=== PATIENT | female | born 1955 | race Hispanic/Latino ===

== ENCOUNTER → 2020-08-18 | Outpatient (CLI) | payer OTHER | END | disposition home or self-care (01) | LOC: RAH 13:20 | PROVIDERS: ATTEND Internal Medicine Critical Care Medicine | DX: M34.9 Systemic sclerosis, unspecified (principal); R16.1 Splenomegaly, not elsewhere classified; Z90.49 Acquired absence of other specified parts of digestive tract | CPT/HCPCS: 71250 ==

== ENCOUNTER → 2020-09-11 | Outpatient (CLI) | payer OTHER ==
[~2020-09-11] VITALS: Ht 154.9 cm; Wt 60.8 kg
[~2020-09-11] MED LIST: ASCO500C6 PO; ERGO50CA PO; FERR-82 PO; FURO40TA5 PO; HYDR200T4 PO; LEVO112T7 PO; LOSA50TA64 PO; MILK175C5 PO; NIFE30TA98 PO; OMEP40CA13 PO; PRED5TAB44 PO; REGADENOSON 0.4 MG/5 ML PF SYG IVP SCH; ROSU20TA31 PO; SPIR50TA5 PO; URSO250T12 PO
== END | disposition home or self-care (01) ==
LOC: SHCH 09:06
PROVIDERS: ATTEND Internal Medicine Cardiovascular Disease
DX: R07.9 Chest pain, unspecified (principal); R06.00 Dyspnea, unspecified; R10.9 Unspecified abdominal pain; M54.5 Low back pain; R51.9 Headache, unspecified
CPT/HCPCS: 78452; 93017; 96374; A9500 ×2

== ENCOUNTER 2020-09-28 16:18 | Observation (INO) | payer OTHER ==
[~2020-09-28] VITALS: Ht 154.9 cm; Wt 61.3 kg
[~2020-09-28 16:18] MED LIST changes: +ASPI-1005 PO; -LOSA50TA64 PO; +METO25 PO; -NIFE30TA98 PO; -OMEP40CA13 PO; +OMEP40CA21 PO; -REGADENOSON 0.4 MG/5 ML PF SYG IVP SCH; +TICA90TA PO
[2020-09-28 16:31] VITALS: BP 163/57
[2020-09-28 17:09] LABS: CREATININE 0.9 mg/dL (0.5-1.5); POTASSIUM 4.5 mmol/L (3.5-5.1)
[2020-09-28 17:15] LABS: BASOPHILS % (AUTO) 0.5 % (0.0-5.0); EOSINOPHILS % (AUTO) 1.3 % (0.0-8.0); HEMATOCRIT 31.2 % (36-48); LYMPHOCYTES % (AUTO) 10.2 % (21.0-51.0); MEAN CORPUSCULAR HEMOGLOBIN 28.3 pg (27.0-33.0); MEAN CORPUSCULAR HGB CONC 30.4 g/dL (32.0-36.0); MEAN CORPUSCULAR VOLUME 92.9 fL (79-99); MONOCYTES % (AUTO) 12.5 % (3.0-13.0); NEUTROPHILS % (AUTO) 73.6 % (40.0-77.0); PLATELET COUNT (AUTO) 96 K/uL (130-400); RED BLOOD CELL COUNT(AUTO) 3.36 MIL/uL (4.00-5.50); RED CELL DISTRIBUTION WIDTH 14.6 % (11.0-15.5); WHITE BLOOD COUNT (AUTO) 6.2 K/uL (4.8-10.8)
[2020-09-28] MEDS ORDERED: ASPIRIN 325MG EC TAB PO ONE (17:15)
[2020-09-28 17:20] LABS: ALBUMIN 3.7 g/dL (3.5-5.0); BILIRUBIN,TOTAL 2.1 mg/dL (0.2-1.0); TOTAL PROTEIN, SERUM 7.1 g/dL (6.0-8.3); TROPONIN I 0.04 ng/mL (0.00-0.06)
[2020-09-28 17:46] LABS: B-TYPE NATRIURETIC PEPTIDE 232 pg/mL (0-100)
[2020-09-28] MEDS ORDERED: NITROGLYCERIN 1GM OINT 1 INCH/1GM TD SCH (18:15)
[2020-09-28] MEDS ORDERED: MORPHINE 4 MG SYG IV ONE (18:30)
[2020-09-28 19:53] LABS: INR 1.1 (0.85-1.15); PROTHROMBIN TIME 11.9 SEC (9.6-11.6)
[2020-09-28 19:54] LABS: PARTIAL THROMBOPLASTIN TIME 24.9 SEC (26.3-35.5)
[2020-09-28 20:44] VITALS: BP 131/42
[2020-09-28] MEDS ORDERED: ONDANSETRON 4MG INJ IV PRN (21:15)
[2020-09-28] MEDS ORDERED: ACETAMINOPHEN 325 MG TAB PO PRN ×2 (21:15)
[2020-09-28] MEDS ORDERED: MORPHINE 2 MG SYG IVP PRN (21:15)
[2020-09-28] MEDS: FAMOTIDINE 20MG VIAL IV SCH (21:55)
[2020-09-28] MEDS: NITROGLYCERIN 1GM OINT 1 INCH/1GM TD SCH (21:55)
[2020-09-29] VITALS (11 sets, daily range): BP systolic 117–144; BP diastolic 42–79
[2020-09-29 06:12] LABS: HEMATOCRIT 28.9 % (36-48); MEAN CORPUSCULAR HEMOGLOBIN 28.8 pg (27.0-33.0); MEAN CORPUSCULAR HGB CONC 30.8 g/dL (32.0-36.0); MEAN CORPUSCULAR VOLUME 93.5 fL (79-99); PLATELET COUNT (AUTO) 91 K/uL (130-400); RED BLOOD CELL COUNT(AUTO) 3.09 MIL/uL (4.00-5.50); RED CELL DISTRIBUTION WIDTH 14.7 % (11.0-15.5)
[2020-09-29] MEDS: NITROGLYCERIN 1GM OINT 1 INCH/1GM TD SCH (06:30)
[2020-09-29 06:35] LABS: ALANINE AMINOTRANSFERASE 26 U/L (12-78); ALBUMIN 3.1 g/dL (3.5-5.0); ASPARTATE AMINOTRANSFERASE 27 U/L (10-37); BILIRUBIN,TOTAL 1.5 mg/dL (0.2-1.0); CARBON DIOXIDE 27 mmol/L (21-32); CHLORIDE 108 mmol/L (101-111); CHOLESTEROL 91 mg/dL (<200); CREATINE KINASE, TOTAL 42 U/L (21-232); CREATININE 0.9 mg/dL (0.5-1.5); GLOMERULAR FILTR. RATE CALC 67 mL/min (>60); GLUCOSE,RANDOM 77 mg/dL (70-105); HDL CHOLESTEROL 61 mg/dL (35-85); LDL DIRECT 26 mg/dL (0-99); MYOGLOBIN 64 ng/mL (10-92); POTASSIUM 4.2 mmol/L (3.5-5.1); SODIUM SERUM 142 mmol/L (136-145); THYROID STIMULATING HORMONE 9.52 uIU/mL (0.36-3.74); TOTAL PROTEIN, SERUM 6.2 g/dL (6.0-8.3); TRIGLYCERIDES 93 mg/dL (30-200); TROPONIN I < 0.04 ng/mL (0.00-0.06); UREA NITROGEN, BLOOD 17 mg/dL (7-18)
[2020-09-29 07:10] LABS: LYMPHOCYTES % (MANUAL) 24 % (22-44); MAN.DIFF COMMENT-IMPRESSION MANUAL DIFFERENTIAL; MONOCYTES % (MANUAL) 10 % (2-9); PLATELET MORPHOLOGY COMMENT DECREASED; SEGMENTED NEUTROPHILS % 66 % (40-70)
[2020-09-29] MEDS ORDERED: ASPIRIN 81MG CHEW TAB PO SCH (09:00)
[2020-09-29] MEDS ORDERED: PRED5TAB PO (10:39)
[2020-09-29] MEDS ORDERED: NITR0.4T SL (10:39)
[2020-09-29] MEDS: TICAGRELOR 90 MG TABLET PO SCH ×2 (11:55→20:27)
[2020-09-29] MEDS: METOPROLOL TARTRATE 25 MG TAB PO SCH ×2 (11:55→20:27)
[2020-09-29] MEDS: FAMOTIDINE 20MG VIAL IV SCH (20:28)
[2020-09-29] MEDS ORDERED: NON-FORMULARY MEDICATION 1 EACH (Prednisone 5 MG) PO SCH (21:00)
[2020-09-29] MEDS ORDERED: SPIRONOLACTONE 25 MG TAB PO SCH (21:00)
[2020-09-29] MEDS ORDERED: PREDNISONE 5 MG TABLET PO SCH (21:00)
[2020-09-29] MEDS ORDERED: NON-FORMULARY MEDICATION 1 EACH (Spironolactone 50 MG) PO SCH (21:00)
[2020-09-29] MEDS ORDERED: URSODIOL 250 MG PO SCH (21:00)
[2020-09-30 04:09] VITALS: BP 144/68
[2020-09-30 05:58] LABS: BASOPHILS % (AUTO) 0.8 % (0.0-5.0); EOSINOPHILS % (AUTO) 0.8 % (0.0-8.0); HEMATOCRIT 32.4 % (36-48); LYMPHOCYTES % (AUTO) 7.9 % (21.0-51.0); MEAN CORPUSCULAR HEMOGLOBIN 28.3 pg (27.0-33.0); MEAN CORPUSCULAR HGB CONC 31.5 g/dL (32.0-36.0); MONOCYTES % (AUTO) 8.5 % (3.0-13.0); NEUTROPHILS % (AUTO) 80.1 % (40.0-77.0); PLATELET COUNT (AUTO) 91 K/uL (130-400); RED CELL DISTRIBUTION WIDTH 14.3 % (11.0-15.5); WHITE BLOOD COUNT (AUTO) 3.7 K/uL (4.8-10.8)
[2020-09-30 06:10] LABS: CREATININE 0.8 mg/dL (0.5-1.5)
[2020-09-30] MEDS ORDERED: LEVOTHYROXINE 112 MCG TABLET PO SCH ×2 (06:30→09:00)
[2020-09-30 07:47] VITALS: BP 152/67
[2020-09-30] MEDS: METOPROLOL TARTRATE 25 MG TAB PO SCH (08:46)
[2020-09-30] MEDS: TICAGRELOR 90 MG TABLET PO SCH (08:46)
[2020-09-30] MEDS ORDERED: PANTOPRAZOLE 40 MG TAB DR PO SCH (09:00)
[2020-09-30] MEDS ORDERED: NON-FORMULARY MEDICATION 1 EACH (Ferrous Sulfate (Iron) 325 MG) PO SCH (09:00)
[2020-09-30] MEDS ORDERED: HYDROXYCHLOROQUINE SULFATE 200 MG TAB PO SCH (09:00)
[2020-09-30] MEDS ORDERED: NON-FORMULARY MEDICATION 1 EACH (Omeprazole 40 MG) PO SCH (09:00)
[2020-09-30] MEDS ORDERED: NON-FORMULARY MEDICATION 1 EACH (Ascorbic Acid (Vitamin C) 500 MG) PO SCH (09:00)
[2020-09-30] MEDS ORDERED: MILK THISTLE SEED EXTRACT 175 MG PO SCH (09:00)
[2020-09-30] MEDS ORDERED: URSODIOL 250 MG PO SCH (09:00)
[2020-09-30] MEDS ORDERED: ASCORBIC ACID 500 MG TAB PO SCH (09:00)
[2020-09-30] MEDS ORDERED: FERROUS SULFATE 325 MG TABLET.DR PO SCH ×2 (09:00)
[2020-09-30] MEDS ORDERED: FUROSEMIDE 40 MG TABLET PO SCH (09:00)
[2020-09-30] MEDS ORDERED: IOHEXOL-350 50ML VIAL IV ONE (10:04)
[2020-09-30 11:30] VITALS: BP 160/54
[2020-09-30] MEDS ORDERED: PREDNISONE 10 MG TABLET PO SCH (14:45)
[2020-09-30 16:26] VITALS: BP 127/65
[2020-09-30] MEDS ORDERED: PRED10B PO (17:39)
[2020-09-30] MEDS ORDERED: LEVO125T95 PO (17:39)
[2020-09-30] MEDS ORDERED: LACTULOSE 20 GM/30 ML UDCUP PO SCH (21:00)
[2020-09-30] MEDS ORDERED: SPIRONOLACTONE 25 MG TAB PO SCH (21:00)
[2020-10-01] MEDS ORDERED: LEVOTHYROXINE 125 MCG TABLET PO SCH (06:30)
[2020-10-01] MEDS ORDERED: PREDNISONE 10 MG TABLET PO SCH (09:00)
[2020-10-04] MEDS ORDERED: ERGOCALCIFEROL (VITAMIN D2) 50,000 UNIT CAPSULE PO SCH (09:00)
== END 2020-09-30 18:55 | disposition home or self-care (01) ==
LOC: EDH 16:18 → INTOOBSV 21:45 → EDHIP 21:45 → 4DH 09-29 13:44
PROVIDERS: ADMIT Internal Medicine; ATTEND Internal Medicine
DX: R07.89 Other chest pain (principal); D64.9 Anemia, unspecified; R10.31 Right lower quadrant pain; I10 Essential (primary) hypertension; H92.01 Otalgia, right ear; K74.60 Unspecified cirrhosis of liver; E78.49 Other hyperlipidemia; I25.10 Atherosclerotic heart disease of native coronary artery without angina pectoris; I25.2 Old myocardial infarction; E03.9 Hypothyroidism, unspecified; M34.1 CR(E)ST syndrome; M34.9 Systemic sclerosis, unspecified; D69.6 Thrombocytopenia, unspecified; M35.00 Sjogren syndrome, unspecified; K76.6 Portal hypertension; K72.90 Hepatic failure, unspecified without coma; R79.89 Other specified abnormal findings of blood chemistry; I21.4 Non-ST elevation (NSTEMI) myocardial infarction; I85.10 Secondary esophageal varices without bleeding; M79.89 Other specified soft tissue disorders; Z95.5 Presence of coronary angioplasty implant and graft; Z90.49 Acquired absence of other specified parts of digestive tract; Z79.82 Long term (current) use of aspirin; Z79.899 Other long term (current) drug therapy
CPT/HCPCS: 36415 ×3; 70470; 71045; 72125; 76882; 80048; 80053 ×2; 80061; 82550 ×2; 83874 ×2; 83880; 84439; 84443; 84481; 84484 ×3; 85025 ×2; 85027; 85610; 85651; 85730; 93005 ×2; 93306; 93356; 96374; 96375; 96376; 99285; G0378 ×2; J2270; J3490 ×2; J7512 ×2; Q9967

== ENCOUNTER → 2020-12-17 | Outpatient (CLI) | payer OTHER ==
[~2020-12-17] MED LIST changes: -LEVO112T7 PO; +LEVO125T95 PO; +NITR0.4T SL; +PRED10B PO; -PRED5TAB44 PO
== END | disposition home or self-care (01) ==
LOC: RAH 09:15
PROVIDERS: ATTEND Internal Medicine Gastroenterology
DX: K44.9 Diaphragmatic hernia without obstruction or gangrene (principal); K74.3 Primary biliary cirrhosis; N28.1 Cyst of kidney, acquired; Z90.49 Acquired absence of other specified parts of digestive tract
CPT/HCPCS: 74240; 76700; 93975

== ENCOUNTER 2021-01-29 19:41 | Emergency (ER) | payer OTHER ==
[~2021-01-29] VITALS: Ht 154.9 cm; Wt 59.0 kg
[2021-01-29 19:45] VITALS: BP 151/55
[2021-01-29 20:18] LABS: APPEARANCE,URINE Clear (CLEAR); BILIRUBIN,URINE Negative (NEGATIVE); COLOR,URINE Yellow (YELLOW); GLUCOSE, URINE (UA) Negative (NEGATIVE); KETONES,URINE Negative (NEGATIVE); LEUKOCYTE ESTERASE ,URINE Small (NEGATIVE); NITRATE,URINE Negative (NEGATIVE); OCCULT BLOOD,URINE Negative (NEGATIVE); PROTEIN,URINE Negative (NEGATIVE)
[2021-01-29 20:28] LABS: BACTERIA,URINE Rare /HPF (None Seen); MUCUS,URINE None Seen LPF (None Seen); RBC,URINE 0-1 /HPF (0-1); SQUAMOUS EPITHELIAL CELL,UR Rare /HPF (0-2)
[2021-01-29] MEDS ORDERED: ONDANSETRON 4MG INJ IVP ONE (20:30)
[2021-01-29] MEDS ORDERED: MORPHINE 2 MG SYG IVP ONE (20:30)
[2021-01-29 21:16] LABS: BASOPHILS % (AUTO) 0.3 % (0.0-5.0); EOSINOPHILS % (AUTO) 1.2 % (0.0-8.0); LYMPHOCYTES % (AUTO) 14.8 % (21.0-51.0); MEAN CORPUSCULAR HEMOGLOBIN 28.3 pg (27.0-33.0); MEAN CORPUSCULAR HGB CONC 31.5 g/dL (32.0-36.0); MEAN CORPUSCULAR VOLUME 89.7 fL (79-99); MONOCYTES % (AUTO) 10.2 % (3.0-13.0); NEUTROPHILS % (AUTO) 72.9 % (40.0-77.0); PLATELET COUNT (AUTO) 82 K/uL (130-400); RED BLOOD CELL COUNT(AUTO) 3.68 MIL/uL (4.00-5.50); WHITE BLOOD COUNT (AUTO) 3.3 K/uL (4.8-10.8)
[2021-01-29 21:30] LABS: CREATININE 0.9 mg/dL (0.5-1.5); POTASSIUM 3.6 mmol/L (3.5-5.1)
[2021-01-29 21:34] LABS: ALBUMIN 3.9 g/dL (3.5-5.0); BILIRUBIN,TOTAL 1.1 mg/dL (0.2-1.0); CRP QUANTITATIVE 4.3 mg/L (0.00-9.0); TOTAL PROTEIN, SERUM 7.2 g/dL (6.0-8.3)
[2021-01-29] MEDS ORDERED: DICY20TA2 PO (21:42)
== END 2021-01-29 21:52 | disposition home or self-care (01) ==
LOC: EDH 19:41
DX: K57.30 Diverticulosis of large intestine without perforation or abscess without bleeding (principal); R10.32 Left lower quadrant pain; I10 Essential (primary) hypertension; Z79.52 Long term (current) use of systemic steroids; Z79.82 Long term (current) use of aspirin; Z79.899 Other long term (current) drug therapy
CPT/HCPCS: 36415; 71045; 74176; 80053; 81001; 83690; 84484; 85025; 86140

== ENCOUNTER 2021-02-09 06:17 | Day surgery (SDC) | payer OTHER ==
[~2021-02-09] VITALS: Ht 154.9 cm; Wt 59.9 kg
[~2021-02-09 06:17] MED LIST changes: +DICY20TA2 PO
[2021-02-09] MEDS ORDERED: 0.9%NACL 1000ML 1,000 ML IV ONE (06:25)
[2021-02-09 07:53] VITALS: BP 130/60
[2021-02-09] MEDS ORDERED: LOSA50TA64 PO (08:08)
[2021-02-09] MEDS ORDERED: NIFE-40 PO (08:08)
[2021-02-09] MEDS ORDERED: PROPOFOL 10 MG/ML 20ML VIAL IV ONE (09:13)
[2021-02-09 09:30] VITALS: BP 104/44
[2021-02-09 09:35] VITALS: BP 118/50
[2021-02-09 09:40] VITALS: BP 115/48
[2021-02-09 09:45] VITALS: BP 126/54
[2021-02-09 10:00] VITALS: BP 120/52
== END 2021-02-09 10:00 | disposition home or self-care (01) ==
LOC: DAH 06:17
PROVIDERS: ATTEND Internal Medicine Gastroenterology
DX: D50.9 Iron deficiency anemia, unspecified (principal); Z20.822 Contact with and (suspected) exposure to COVID-19; K44.9 Diaphragmatic hernia without obstruction or gangrene; K31.7 Polyp of stomach and duodenum; K74.3 Primary biliary cirrhosis; I85.10 Secondary esophageal varices without bleeding; K31.89 Other diseases of stomach and duodenum; R13.10 Dysphagia, unspecified; M34.9 Systemic sclerosis, unspecified; I25.10 Atherosclerotic heart disease of native coronary artery without angina pectoris; K21.9 Gastro-esophageal reflux disease without esophagitis; E03.9 Hypothyroidism, unspecified; I25.2 Old myocardial infarction; I86.8 Varicose veins of other specified sites; Z79.82 Long term (current) use of aspirin; Z79.01 Long term (current) use of anticoagulants; Z86.010 Personal history of colon polyps; Z90.49 Acquired absence of other specified parts of digestive tract; Z98.891 History of uterine scar from previous surgery; Z95.5 Presence of coronary angioplasty implant and graft; Z98.890 Other specified postprocedural states
CPT/HCPCS: 43239; 87635; 88305; 88313; 88342; 93005; A4215 ×2; A4221; A4222; A4223; A4606; A4620; A4663; C9803; J2704; J7030

== ENCOUNTER 2021-02-22 07:56 | Emergency (ER) | payer OTHER ==
[~2021-02-22] VITALS: Ht 154.9 cm; Wt 59.0 kg
[~2021-02-22 07:56] MED LIST changes: -DICY20TA2 PO; +LOSA50TA64 PO; +NIFE-40 PO; -NITR0.4T SL; -ROSU20TA31 PO; -TICA90TA PO
[2021-02-22 08:04] VITALS: BP 151/57
[2021-02-22 08:21] LABS: BASOPHILS % (AUTO) 0.4 % (0.0-5.0); EOSINOPHILS % (AUTO) 1.6 % (0.0-8.0); LYMPHOCYTES % (AUTO) 6.7 % (21.0-51.0); MEAN CORPUSCULAR HEMOGLOBIN 28.4 pg (27.0-33.0); MEAN CORPUSCULAR HGB CONC 30.9 g/dL (32.0-36.0); MEAN CORPUSCULAR VOLUME 91.9 fL (79-99); MONOCYTES % (AUTO) 7.9 % (3.0-13.0); NEUTROPHILS % (AUTO) 82.8 % (40.0-77.0); PLATELET COUNT (AUTO) 71 K/uL (130-400); RED BLOOD CELL COUNT(AUTO) 3.59 MIL/uL (4.00-5.50); RED CELL DISTRIBUTION WIDTH 15.5 % (11.0-15.5); WHITE BLOOD COUNT (AUTO) 5.1 K/uL (4.8-10.8)
[2021-02-22 08:48] LABS: ALBUMIN 2.8 g/dL (3.5-5.0); BILIRUBIN,TOTAL 1.9 mg/dL (0.2-1.0); CREATININE 0.8 mg/dL (0.5-1.5); POTASSIUM 3.6 mmol/L (3.5-5.1); TOTAL PROTEIN, SERUM 6.1 g/dL (6.0-8.3)
[2021-02-22] MEDS ORDERED: DICY10 PO (09:23)
[2021-02-22] MEDS ORDERED: LOPE2TAB26 PO (09:23)
[2021-02-22] MEDS ORDERED: LOPERAMIDE HCL 2 MG CAP PO ONE (09:30)
[2021-02-22] MEDS ORDERED: DICYCLOMINE HCL 20 MG TAB PO SCH (09:30)
== END 2021-02-22 09:26 | disposition home or self-care (01) ==
LOC: EDH 07:56
DX: K62.5 Hemorrhage of anus and rectum (principal); R19.7 Diarrhea, unspecified; R10.9 Unspecified abdominal pain; I25.10 Atherosclerotic heart disease of native coronary artery without angina pectoris; Z79.52 Long term (current) use of systemic steroids; Z79.82 Long term (current) use of aspirin; Z79.899 Other long term (current) drug therapy; Z87.19 Personal history of other diseases of the digestive system
CPT/HCPCS: 36415; 80053; 82270; 85025

== ENCOUNTER 2021-06-06 16:51 | Inpatient (IN) | payer OTHER ==
[~2021-06-06] VITALS: Ht 162.6 cm; Wt 58.5 kg
[2021-06-06 02:15] VITALS: BP 124/59
[~2021-06-06 16:51] MED LIST changes: +DICY10 PO; +LOPE2TAB26 PO
[2021-06-06 17:48] LABS: BASOPHILS % (AUTO) 0.9 % (0.0-5.0); EOSINOPHILS % (AUTO) 2.2 % (0.0-8.0); HEMATOCRIT 28.4 % (36-48); LYMPHOCYTES % (AUTO) 10.2 % (21.0-51.0); MEAN CORPUSCULAR HEMOGLOBIN 28.8 pg (27.0-33.0); MEAN CORPUSCULAR VOLUME 92.8 fL (79-99); MONOCYTES % (AUTO) 15.2 % (3.0-13.0); NEUTROPHILS % (AUTO) 70.9 % (40.0-77.0); PLATELET COUNT (AUTO) 84 K/uL (130-400); RED BLOOD CELL COUNT(AUTO) 3.06 MIL/uL (4.00-5.50); RED CELL DISTRIBUTION WIDTH 15.2 % (11.0-15.5); WHITE BLOOD COUNT (AUTO) 3.2 K/uL (4.8-10.8)
[2021-06-06 17:58] LABS: CREATININE 1.1 mg/dL (0.5-1.5); POTASSIUM 4.1 mmol/L (3.5-5.1)
[2021-06-06 18:03] LABS: ALBUMIN 3.1 g/dL (3.5-5.0); BILIRUBIN,TOTAL 1.1 mg/dL (0.2-1.0); TOTAL PROTEIN, SERUM 6.3 g/dL (6.0-8.3)
[2021-06-06 18:10] LABS: B-TYPE NATRIURETIC PEPTIDE 382 pg/mL (0-100)
[2021-06-06 19:49] LABS: THYROID STIMULATING HORMONE 4.24 uIU/mL (0.36-3.74)
[2021-06-06] MEDS ORDERED: FUROSEMIDE 40MG VIAL IV ONE (20:30)
[2021-06-06] MEDS ORDERED: HYDROMORPHONE 0.5 MG SYG (0.5MG/0.5ML) IVP PRN (20:30)
[2021-06-06 20:31] LABS: APPEARANCE,URINE Clear (CLEAR); BILIRUBIN,URINE Negative (NEGATIVE); COLOR,URINE Yellow (YELLOW); GLUCOSE, URINE (UA) Negative (NEGATIVE); KETONES,URINE Negative (NEGATIVE); LEUKOCYTE ESTERASE ,URINE Large (NEGATIVE); NITRATE,URINE Positive (NEGATIVE); OCCULT BLOOD,URINE Negative (NEGATIVE); PH,URINE 5.5 (5.0-8.0); PROTEIN,URINE Negative (NEGATIVE); UROBILINOGEN,URINE 0.2 mg/dL (0.2-1.0)
[2021-06-06 20:39] LABS: BACTERIA,URINE Few /HPF (None Seen); RBC,URINE 0-1 /HPF (0-1); SQUAMOUS EPITHELIAL CELL,UR Few /HPF (0-2); TRANSITIONAL EPI CELLS,URINE Rare /HPF (None Seen); WBC,URINE 26-50 /HPF (0-1)
[2021-06-06 20:55] LABS: HEMOGLOBIN A1C 5.6 % (4.0-6.0)
[2021-06-06] MEDS ORDERED: MAG/ALUM/SIMETH 30 ML UDCUP PO PRN (21:00)
[2021-06-06] MEDS ORDERED: ACETAMINOPHEN 325 MG TAB PO PRN (21:00)
[2021-06-06] MEDS ORDERED: ONDANSETRON 4MG INJ IV PRN (21:00)
[2021-06-06] MEDS: METOPROLOL TARTRATE 25 MG TAB PO SCH (21:14)
[2021-06-06] MEDS: FAMOTIDINE 20MG VIAL IV SCH (21:14)
[2021-06-06] MEDS: NITROGLYCERIN 1GM OINT 1 INCH/1GM TD SCH (21:14)
[2021-06-06 22:22] LABS: MAGNESIUM 1.8 mg/dL (1.80-2.40); PHOSPHORUS 4.1 mg/dL (2.5-4.9)
[2021-06-07] MEDS ORDERED: ATORVASTATIN 20 MG TABLET PO ONE (01:30)
[2021-06-07] MEDS ORDERED: RENAL DOSE IV ONE (02:00)
[2021-06-07] MEDS ORDERED: PHARMACY COMMUNICATION MISC SCH (02:00)
[2021-06-07 02:23] LABS: CHLORIDE,URINE RANDOM 37 mmol/L (110-250); POTASSIUM,URINE RANDOM 13 mmol/L (25-125); SODIUM,URINE RANDOM 25 mmol/l (40-220)
[2021-06-07] MEDS ORDERED: HYDROMORPHONE 1 MG INJ ONE (03:09)
[2021-06-07 04:00] VITALS: BP 114/54
[2021-06-07] MEDS: NITROGLYCERIN 1GM OINT 1 INCH/1GM TD SCH ×3 (04:49→19:26)
[2021-06-07 05:18] LABS: BASOPHILS % (AUTO) 0.4 % (0.0-5.0); EOSINOPHILS % (AUTO) 2.8 % (0.0-8.0); HEMATOCRIT 29.7 % (36-48); LYMPHOCYTES % (AUTO) 15.1 % (21.0-51.0); MEAN CORPUSCULAR HGB CONC 30.6 g/dL (32.0-36.0); MEAN CORPUSCULAR VOLUME 91.4 fL (79-99); MONOCYTES % (AUTO) 13.7 % (3.0-13.0); NEUTROPHILS % (AUTO) 67.3 % (40.0-77.0); PLATELET COUNT (AUTO) 77 K/uL (130-400); RED BLOOD CELL COUNT(AUTO) 3.25 MIL/uL (4.00-5.50); RED CELL DISTRIBUTION WIDTH 15.1 % (11.0-15.5); WHITE BLOOD COUNT (AUTO) 2.8 K/uL (4.8-10.8)
[2021-06-07 05:29] LABS: POTASSIUM 3.9 mmol/L (3.5-5.1)
[2021-06-07 05:34] LABS: BILIRUBIN,TOTAL 1.2 mg/dL (0.2-1.0); MAGNESIUM 1.9 mg/dL (1.80-2.40); PHOSPHORUS 4.2 mg/dL (2.5-4.9); TOTAL PROTEIN, SERUM 6.1 g/dL (6.0-8.3)
[2021-06-07 06:19] LABS: BAND NEUTROPHILS % (MANUAL) 2 % (0-2); EOSINOPHILS % (MANUAL) 2 % (1-6); LYMPHOCYTES % (MANUAL) 10 % (22-44); MAN.DIFF COMMENT-IMPRESSION MANUAL DIFFERENTIAL; MONOCYTES % (MANUAL) 14 % (2-9); PLATELET MORPHOLOGY COMMENT DECREASED; SEGMENTED NEUTROPHILS % 72 % (40-70)
[2021-06-07] MEDS: ALBUTEROL 0.083% 2.5 MG/3 ML INH IH SCH ×5 (06:34→23:19)
[2021-06-07] MEDS ORDERED: MORPHINE 2 MG SYG ONE (07:04)
[2021-06-07] MEDS ORDERED: MORPHINE 2 MG SYG IVP SCH (07:30)
[2021-06-07 08:23] VITALS: BP 94/43
[2021-06-07] MEDS: FUROSEMIDE 20MG VIAL IV SCH ×2 (08:27→21:19)
[2021-06-07] MEDS: METOPROLOL TARTRATE 25 MG TAB PO SCH ×2 (08:28→21:19)
[2021-06-07] MEDS ORDERED: NITROFURANTOIN MONOHYD/M-CRYST 100 MG CAPSULE PO SCH (09:00)
[2021-06-07 11:33] VITALS: BP 113/49
[2021-06-07 11:53] LABS: CHOLESTEROL 107 mg/dL (<200); HDL CHOLESTEROL 51 mg/dL (35-85); LDL DIRECT 41 mg/dL (0-99); TRIGLYCERIDES 100 mg/dL (30-200)
[2021-06-07 11:56] LABS: MAGNESIUM 1.8 mg/dL (1.80-2.40); PHOSPHORUS 4.1 mg/dL (2.5-4.9)
[2021-06-07] MEDS: CEFTRIAXONE 1G VIAL IVP SCH (14:21)
[2021-06-07] MEDS ORDERED: IOHEXOL 350 MG/ML 100ML INFUS..BTL IV ONE (15:11)
[2021-06-07 15:57] VITALS: BP 131/53
[2021-06-07 20:00] VITALS: BP 111/53
[2021-06-07] MEDS: FAMOTIDINE 20MG VIAL IV SCH (21:19)
[2021-06-07] MEDS: ATORVASTATIN 20 MG TABLET PO SCH (21:19)
[2021-06-08] VITALS: BP 101/44
[2021-06-08] MEDS: CEFTRIAXONE 1G VIAL IVP SCH ×2 (01:21→15:06)
[2021-06-08 03:57] LABS: BASOPHILS % (AUTO) 0.9 % (0.0-5.0); EOSINOPHILS % (AUTO) 3.1 % (0.0-8.0); HEMATOCRIT 27.3 % (36-48); LYMPHOCYTES % (AUTO) 17.5 % (21.0-51.0); MEAN CORPUSCULAR HEMOGLOBIN 28.1 pg (27.0-33.0); MEAN CORPUSCULAR HGB CONC 31.1 g/dL (32.0-36.0); MEAN CORPUSCULAR VOLUME 90.4 fL (79-99); MONOCYTES % (AUTO) 14.5 % (3.0-13.0); NEUTROPHILS % (AUTO) 63.6 % (40.0-77.0); PLATELET COUNT (AUTO) 74 K/uL (130-400); RED BLOOD CELL COUNT(AUTO) 3.02 MIL/uL (4.00-5.50); RED CELL DISTRIBUTION WIDTH 15.3 % (11.0-15.5); WHITE BLOOD COUNT (AUTO) 2.3 K/uL (4.8-10.8)
[2021-06-08 04:00] VITALS: BP 110/46
[2021-06-08 04:26] LABS: ALBUMIN 2.8 g/dL (3.5-5.0); CREATININE 0.9 mg/dL (0.5-1.5); POTASSIUM 3.7 mmol/L (3.5-5.1)
[2021-06-08 04:32] LABS: B-TYPE NATRIURETIC PEPTIDE 481 pg/mL (0-100)
[2021-06-08] MEDS: NITROGLYCERIN 1GM OINT 1 INCH/1GM TD SCH ×3 (04:44→20:17)
[2021-06-08] MEDS: ALBUTEROL 0.083% 2.5 MG/3 ML INH IH SCH ×4 (06:33→23:33)
[2021-06-08] MEDS: FUROSEMIDE 20MG VIAL IV SCH ×2 (08:27→20:17)
[2021-06-08 09:20] VITALS: BP 96/45
[2021-06-08 10:59] VITALS: BP 126/66
[2021-06-08] MEDS: METOPROLOL TARTRATE 25 MG TAB PO SCH ×2 (11:07→20:17)
[2021-06-08 16:02] VITALS: BP 111/53
[2021-06-08 20:00] VITALS: BP 112/49
[2021-06-08] MEDS: FAMOTIDINE 20MG VIAL IV SCH (20:16)
[2021-06-08] MEDS: ATORVASTATIN 20 MG TABLET PO SCH (20:17)
[2021-06-08] MEDS ORDERED: ZINC50TA15 PO (23:33)
[2021-06-08] MEDS ORDERED: LEVO112C4 PO (23:33)
[2021-06-08] MEDS ORDERED: URSO300C4 PO (23:33)
[2021-06-08] MEDS ORDERED: LACT10SO9 PO (23:33)
[2021-06-08] MEDS ORDERED: ROSU20TA31 PO (23:33)
[2021-06-08] MEDS ORDERED: PRED5TAB PO (23:33)
[2021-06-08] MEDS ORDERED: ASCO500T20 PO (23:33)
[2021-06-09] VITALS: BP 111/46
[2021-06-09] MEDS: CEFTRIAXONE 1G VIAL IVP SCH ×2 (01:32→14:00)
[2021-06-09 04:00] VITALS: BP 111/46
[2021-06-09 04:24] LABS: BASOPHILS % (AUTO) 0.4 % (0.0-5.0); EOSINOPHILS % (AUTO) 3.1 % (0.0-8.0); HEMATOCRIT 26.8 % (36-48); LYMPHOCYTES % (AUTO) 17.5 % (21.0-51.0); MEAN CORPUSCULAR HEMOGLOBIN 27.6 pg (27.0-33.0); MEAN CORPUSCULAR HGB CONC 30.2 g/dL (32.0-36.0); MEAN CORPUSCULAR VOLUME 91.2 fL (79-99); MONOCYTES % (AUTO) 16.1 % (3.0-13.0); NEUTROPHILS % (AUTO) 62.5 % (40.0-77.0); PLATELET COUNT (AUTO) 62 K/uL (130-400); RED BLOOD CELL COUNT(AUTO) 2.94 MIL/uL (4.00-5.50); RED CELL DISTRIBUTION WIDTH 15.4 % (11.0-15.5); WHITE BLOOD COUNT (AUTO) 2.2 K/uL (4.8-10.8)
[2021-06-09 04:33] LABS: CREATININE 0.9 mg/dL (0.5-1.5); POTASSIUM 3.1 mmol/L (3.5-5.1)
[2021-06-09] MEDS: NITROGLYCERIN 1GM OINT 1 INCH/1GM TD SCH (04:44)
[2021-06-09] MEDS: ALBUTEROL 0.083% 2.5 MG/3 ML INH IH SCH ×2 (07:22→11:28)
[2021-06-09] MEDS ORDERED: KCL 20 MEQ ERTAB PO ONE (08:23)
[2021-06-09] MEDS: METOPROLOL TARTRATE 25 MG TAB PO SCH (08:28)
[2021-06-09] MEDS ORDERED: POTASSIUM CHLORIDE 20MEQ/100ML 100 ML IV PRN (08:30)
[2021-06-09] MEDS ORDERED: LIDOCAINE HCL-MPF 1% 2ML VIAL IV PRN (08:30)
[2021-06-09] MEDS ORDERED: POTASSIUM CHLORIDE 10% ELIXIR 20 MEQ/15 ML UDCUP PO PRN (08:30)
[2021-06-09] MEDS ORDERED: KCL 20 MEQ ERTAB PO PRN (08:30)
[2021-06-09 08:46] VITALS: BP 119/54
[2021-06-09] MEDS ORDERED: PANTOPRAZOLE 40 MG TAB DR PO SCH (09:00)
[2021-06-09] MEDS ORDERED: FUROSEMIDE 40 MG TABLET PO SCH (09:00)
[2021-06-09] MEDS ORDERED: ASCORBIC ACID 500 MG TAB PO SCH (09:00)
[2021-06-09] MEDS ORDERED: URSODIOL 300 MG CAPSULE PO SCH (09:00)
[2021-06-09] MEDS ORDERED: LACTULOSE 20 GM/30 ML UDCUP PO SCH (09:00)
[2021-06-09] MEDS ORDERED: SPIRONOLACTONE 25 MG TAB PO SCH (09:00)
[2021-06-09] MEDS ORDERED: KCL 20 MEQ ERTAB PO SCH (09:00)
[2021-06-09] MEDS ORDERED: HYDROXYCHLOROQUINE SULFATE 200 MG TAB PO SCH (09:00)
[2021-06-09] MEDS ORDERED: PREDNISONE 5 MG TABLET PO SCH (09:00)
[2021-06-09] MEDS ORDERED: ZINC GLUCONATE 50 MG PO SCH (09:00)
[2021-06-09 09:34] LABS: RETICULOCYTE % (AUTO) 1.92 % (0.42-2.23)
[2021-06-09 09:42] LABS: AMMONIA 19 umol/L (11-32)
[2021-06-09 09:43] LABS: INR 1.13 (0.85-1.15); PROTHROMBIN TIME 12.2 SEC (9.6-11.6)
[2021-06-09 09:45] LABS: PARTIAL THROMBOPLASTIN TIME 27.5 SEC (26.3-35.5)
[2021-06-09 10:23] LABS: THYROID STIMULATING HORMONE 5.17 uIU/mL (0.36-3.74)
[2021-06-09 12:00] VITALS: BP 136/56
[2021-06-09] MEDS ORDERED: FURO20TA4 PO (13:10)
[2021-06-09] MEDS ORDERED: LOSA25TA41 PO (13:10)
[2021-06-09] MEDS ORDERED: CEFU500T67 PO (13:10)
[2021-06-09] MEDS ORDERED: SPIR25TA6 PO (13:10)
[2021-06-09] MEDS ORDERED: PRED5TAB PO (13:10)
[2021-06-09] MEDS ORDERED: LEVO112C4 PO (13:10)
[2021-06-09 17:42] VITALS: BP 114/52
[2021-06-10] MEDS ORDERED: LEVOTHYROXINE 112 MCG TABLET PO SCH (07:30)
== END 2021-06-09 19:20 | disposition home or self-care (01) | DRG 280 ==
LOC: EDH 16:51 → EDHIP 20:32 → 4BH 06-07 02:13
PROVIDERS: ADMIT Internal Medicine; ATTEND Internal Medicine
DX: I21.4 Non-ST elevation (NSTEMI) myocardial infarction (principal); I50.31 Acute diastolic (congestive) heart failure; U07.1 COVID-19; J12.82 Pneumonia due to coronavirus disease 2019; N39.0 Urinary tract infection, site not specified; I13.0 Hypertensive heart and chronic kidney disease with heart failure and stage 1 through stage 4 chronic kidney disease, or unspecified chronic kidney disease; N17.9 Acute kidney failure, unspecified; D61.818 Other pancytopenia; K74.60 Unspecified cirrhosis of liver; I25.10 Atherosclerotic heart disease of native coronary artery without angina pectoris; E78.00 Pure hypercholesterolemia, unspecified; E03.9 Hypothyroidism, unspecified; E78.5 Hyperlipidemia, unspecified; N18.9 Chronic kidney disease, unspecified; M34.1 CR(E)ST syndrome; I25.2 Old myocardial infarction; Z95.5 Presence of coronary angioplasty implant and graft; Z87.11 Personal history of peptic ulcer disease; Z82.3 Family history of stroke; Z80.9 Family history of malignant neoplasm, unspecified; Z83.3 Family history of diabetes mellitus; Z82.49 Family history of ischemic heart disease and other diseases of the circulatory system
CPT/HCPCS: 36415; 71045; 71275; 76770; 80048; 80051; 80053; 80061; 81001; 82040; 82140; 82330; 82550; 82607; 82728; 82746; 83036; 83540; 83550; 83605; 83735; 83874; 83880; 84100; 84145; 84443; 84484; 85025; 85045; 85378; 85610; 85730; 87077; 87088; 87186; 93005; 93306; 93970; 94640; 94664; 99291; G0378; J0696; J1170; J1940; J2405; J3490; J7512; Q9967

== ENCOUNTER 2021-06-30 10:55 | Emergency (ER) | payer OTHER ==
[~2021-06-30 10:55] MED LIST changes: -ASCO500C6 PO; +ASCO500T20 PO; -ASPI-1005 PO; +CEFU500T67 PO; -DICY10 PO; +FURO20TA4 PO; -FURO40TA5 PO; +LACT10SO9 PO; +LEVO112C4 PO; -LEVO125T95 PO; -LOPE2TAB26 PO; +LOSA25TA41 PO; -LOSA50TA64 PO; -NIFE-40 PO; -PRED10B PO; +PRED5TAB PO; +ROSU20TA31 PO; +SPIR25TA6 PO; -SPIR50TA5 PO; -URSO250T12 PO; +URSO300C4 PO; +ZINC50TA15 PO
[2021-06-30 11:11] VITALS: BP 135/62
[2021-06-30 12:01] LABS: BASOPHILS % (AUTO) 0.7 % (0.0-5.0); EOSINOPHILS % (AUTO) 1.4 % (0.0-8.0); HEMATOCRIT 30.5 % (36-48); LYMPHOCYTES % (AUTO) 13.4 % (21.0-51.0); MEAN CORPUSCULAR HGB CONC 30.2 g/dL (32.0-36.0); MONOCYTES % (AUTO) 10.7 % (3.0-13.0); NEUTROPHILS % (AUTO) 73.1 % (40.0-77.0); PLATELET COUNT (AUTO) 63 K/uL (130-400); RED BLOOD CELL COUNT(AUTO) 3.28 MIL/uL (4.00-5.50); WHITE BLOOD COUNT (AUTO) 2.9 K/uL (4.8-10.8)
[2021-06-30 12:09] LABS: CREATININE 0.7 mg/dL (0.5-1.5); POTASSIUM 3.2 mmol/L (3.5-5.1)
[2021-06-30 12:14] LABS: ALBUMIN 3.1 g/dL (3.5-5.0); BILIRUBIN,TOTAL 1.9 mg/dL (0.2-1.0); TOTAL PROTEIN, SERUM 6.1 g/dL (6.0-8.3)
[2021-06-30] MEDS ORDERED: POTA-187 PO (12:42)
[2021-06-30] MEDS ORDERED: POTASSIUM BICARB/CIT AC 25 MEQ TABLET.EFF ONE (12:49)
[2021-06-30] MEDS ORDERED: POTASSIUM BICARB/CIT AC 25 MEQ TABLET.EFF PO ONE (13:00)
[2021-06-30 13:13] LABS: EOSINOPHILS % (MANUAL) 3 % (1-6); LYMPHOCYTES % (MANUAL) 17 % (22-44); MAN.DIFF COMMENT-IMPRESSION MANUAL DIFFERENTIAL; MONOCYTES % (MANUAL) 9 % (2-9); PLATELET MORPHOLOGY COMMENT DECREASED; REACTIVE LYMPHOCYTES 2 % (0-0); SEGMENTED NEUTROPHILS % 69 % (40-70)
[2021-07-10] MEDS ORDERED: ATOR40TA71 PO (18:30)
[2021-07-10] MEDS ORDERED: CLOP75TA14 PO (18:30)
[2021-07-10] MEDS ORDERED: ASPI-1443 PO (18:30)
[2021-07-10] MEDS ORDERED: METO25TA6 PO (18:31)
== END 2021-06-30 12:57 | disposition home or self-care (01) ==
LOC: EDH 10:55
DX: K64.4 Residual hemorrhoidal skin tags (principal); E87.6 Hypokalemia; D69.6 Thrombocytopenia, unspecified; D64.9 Anemia, unspecified; K74.60 Unspecified cirrhosis of liver; E78.00 Pure hypercholesterolemia, unspecified; I10 Essential (primary) hypertension; I25.10 Atherosclerotic heart disease of native coronary artery without angina pectoris; I25.2 Old myocardial infarction; Z79.52 Long term (current) use of systemic steroids; Z79.899 Other long term (current) drug therapy; Z87.19 Personal history of other diseases of the digestive system
CPT/HCPCS: 36415; 80053; 85025

== ENCOUNTER 2021-07-17 15:20 | Emergency (ER) | payer OTHER ==
[~2021-07-17] VITALS: Ht 154.9 cm; Wt 60.8 kg
[~2021-07-17 15:20] MED LIST changes: +ASPI-1443 PO; +ATOR40TA71 PO; -CEFU500T67 PO; +CLOP75TA14 PO; -LOSA25TA41 PO; -METO25 PO; +METO25TA6 PO; -PRED5TAB PO; -SPIR25TA6 PO
[2021-07-17 15:24] VITALS: BP 152/63
[2021-07-17 15:55] LABS: APPEARANCE,URINE Cloudy (CLEAR); BILIRUBIN,URINE Negative (NEGATIVE); COLOR,URINE Yellow (YELLOW); GLUCOSE, URINE (UA) Negative (NEGATIVE); KETONES,URINE Trace mg/dL (NEGATIVE); LEUKOCYTE ESTERASE ,URINE Trace (NEGATIVE); NITRATE,URINE Negative (NEGATIVE); OCCULT BLOOD,URINE Negative (NEGATIVE); PH,URINE 5.5 (5.0-8.0); PROTEIN,URINE POS 2+ mg/dL (NEGATIVE)
[2021-07-17] MEDS ORDERED: DEXAMETHASONE 4 MG TAB PO SCH (16:00)
[2021-07-17] MEDS ORDERED: DIPHENHYDRAMINE HCL 25 MG CAPSULE PO ONE (16:00)
[2021-07-17] MEDS ORDERED: FAMOTIDINE 20MG TAB PO ONE (16:00)
[2021-07-17 16:03] LABS: RBC,URINE 0-1 /HPF (0-1)
[2021-07-17 16:04] LABS: BACTERIA,URINE Few /HPF (None Seen); SQUAMOUS EPITHELIAL CELL,UR Few /HPF (0-2)
[2021-07-17] MEDS ORDERED: CEFTRIAXONE 1G VIAL IM SCH (16:30)
[2021-07-17] MEDS ORDERED: FAMO-136 PO (17:15)
[2021-07-17] MEDS ORDERED: CETI1SOL17 PO (17:15)
[2021-07-17] MEDS ORDERED: CEPH500B PO (17:15)
[2021-07-17] MEDS ORDERED: PRED20TA3 PO (17:15)
== END 2021-07-17 17:28 | disposition home or self-care (01) ==
LOC: EDH 15:20
DX: N39.0 Urinary tract infection, site not specified (principal); L50.9 Urticaria, unspecified; I25.10 Atherosclerotic heart disease of native coronary artery without angina pectoris; Z79.52 Long term (current) use of systemic steroids; Z79.82 Long term (current) use of aspirin; Z79.899 Other long term (current) drug therapy
CPT/HCPCS: 36415; 81001; 82140; 87088; 96372; 99284; J0696; J8540; Q0163

== ENCOUNTER → 2021-08-26 | Outpatient (CLI) | payer OTHER ==
[~2021-08-26] MED LIST changes: +CEPH500B PO; +CETI1SOL17 PO; +FAMO-136 PO; +PRED20TA3 PO
[2021-08-26 12:15] LABS: BASOPHILS % (AUTO) 0.3 % (0.0-5.0); EOSINOPHILS % (AUTO) 1.7 % (0.0-8.0); LYMPHOCYTES % (AUTO) 12.5 % (21.0-51.0); MEAN CORPUSCULAR HEMOGLOBIN 27.3 pg (27.0-33.0); MEAN CORPUSCULAR HGB CONC 30.8 g/dL (32.0-36.0); MEAN CORPUSCULAR VOLUME 88.7 fL (79-99); NEUTROPHILS % (AUTO) 76.6 % (40.0-77.0); PLATELET COUNT (AUTO) 104 K/uL (130-400); RED BLOOD CELL COUNT(AUTO) 4.17 MIL/uL (4.00-5.50); RED CELL DISTRIBUTION WIDTH 14.4 % (11.0-15.5); WHITE BLOOD COUNT (AUTO) 3.5 K/uL (4.8-10.8)
[2021-08-26 12:37] LABS: CREATININE 0.9 mg/dL (0.5-1.5); POTASSIUM 3.4 mmol/L (3.5-5.1)
[2021-08-26 12:39] LABS: B-TYPE NATRIURETIC PEPTIDE 531 pg/mL (0-100)
== END | disposition home or self-care (01) ==
LOC: LAB 10:09
PROVIDERS: ATTEND Physician Assistant
DX: I25.10 Atherosclerotic heart disease of native coronary artery without angina pectoris (principal); I10 Essential (primary) hypertension
CPT/HCPCS: 36415; 80048; 83880; 85025

== ENCOUNTER → 2021-12-30 | Outpatient (CLI) | payer MEDICARE ==
[2021-12-30 12:22] LABS: BASOPHILS % (AUTO) 0.6 % (0.0-5.0); EOSINOPHILS % (AUTO) 1.8 % (0.0-8.0); HEMATOCRIT 35.6 % (36-48); LYMPHOCYTES % (AUTO) 10.6 % (21.0-51.0); MEAN CORPUSCULAR HEMOGLOBIN 26.8 pg (27.0-33.0); MEAN CORPUSCULAR HGB CONC 31.5 g/dL (32.0-36.0); MEAN CORPUSCULAR VOLUME 85.2 fL (79-99); MONOCYTES % (AUTO) 14.2 % (3.0-13.0); NEUTROPHILS % (AUTO) 72.5 % (40.0-77.0); PLATELET COUNT (AUTO) 99 K/uL (130-400); RED BLOOD CELL COUNT(AUTO) 4.18 MIL/uL (4.00-5.50); RED CELL DISTRIBUTION WIDTH 16.5 % (11.0-15.5); WHITE BLOOD COUNT (AUTO) 3.4 K/uL (4.8-10.8)
== END | disposition home or self-care (01) ==
LOC: LAB 10:50
PROVIDERS: ATTEND Physician Assistant
DX: I25.10 Atherosclerotic heart disease of native coronary artery without angina pectoris (principal)
CPT/HCPCS: 36415; 85025

== ENCOUNTER → 2022-01-11 | Outpatient (CLI) | payer MEDICARE | END | disposition home or self-care (01) | LOC: RAH 08:04 | PROVIDERS: ATTEND Internal Medicine Gastroenterology | DX: R18.8 Other ascites (principal); R10.11 Right upper quadrant pain | CPT/HCPCS: 74170 ==

== ENCOUNTER → 2022-08-12 | Outpatient (CLI) | payer MEDICARE ==
[~2022-08-12] MED LIST changes: +CLOP-31 PO; -CLOP75TA14 PO
== END | disposition home or self-care (01) ==
LOC: RAH 07:29
PROVIDERS: ATTEND Internal Medicine Gastroenterology
DX: R18.8 Other ascites (principal); K74.3 Primary biliary cirrhosis
CPT/HCPCS: 76705

== ENCOUNTER → 2022-09-26 | Outpatient (CLI) | payer MEDICARE ==
[~2022-09-26] MED LIST changes: +AMLO-258 PO; -CEPH500B PO; +CLIN-141 PO; -FURO20TA4 PO; +FURO40TA7 PO; -LACT10SO9 PO; -MILK175C5 PO; -PRED20TA3 PO; -ROSU20TA31 PO; +SPIR100T5 PO; -ZINC50TA15 PO
[2022-09-26 15:07] LABS: BASOPHILS % (AUTO) 0.8 % (0.0-5.0); EOSINOPHILS % (AUTO) 0.5 % (0.0-8.0); HEMATOCRIT 29.3 % (36-48); LYMPHOCYTES % (AUTO) 6.3 % (21.0-51.0); MEAN CORPUSCULAR HEMOGLOBIN 25.5 pg (27.0-33.0); MEAN CORPUSCULAR HGB CONC 31.7 g/dL (32.0-36.0); MEAN CORPUSCULAR VOLUME 80.3 fL (79-99); MONOCYTES % (AUTO) 9.4 % (3.0-13.0); NEUTROPHILS % (AUTO) 82.2 % (40.0-77.0); PLATELET COUNT (AUTO) 224 K/uL (130-400); RED BLOOD CELL COUNT(AUTO) 3.65 MIL/uL (4.00-5.50); RED CELL DISTRIBUTION WIDTH 15.3 % (11.0-15.5)
[2022-09-26 15:17] LABS: INR 1.08 (0.85-1.15); PROTHROMBIN TIME 11.7 SEC (9.6-11.6)
[2022-09-26 15:18] LABS: PARTIAL THROMBOPLASTIN TIME 29.5 SEC (26.3-35.5)
[2022-09-26 15:20] LABS: ALBUMIN 2.8 g/dL (3.5-5.0); CREATININE 1.3 mg/dL (0.5-1.5); POTASSIUM 3.5 mmol/L (3.5-5.1); TOTAL PROTEIN, SERUM 6.4 g/dL (6.0-8.3)
== END | disposition home or self-care (01) ==
LOC: LAB 13:55
PROVIDERS: ATTEND Internal Medicine Gastroenterology
DX: R18.8 Other ascites (principal); Z79.01 Long term (current) use of anticoagulants
CPT/HCPCS: 36415; 80053; 85025; 85610; 85730; 87426

== ENCOUNTER → 2022-09-29 | Outpatient (CLI) | payer MEDICARE ==
[~2022-09-29] MED LIST changes: +ALBUMIN (HUMAN) 25% 200 ML IV SCH; -HYDR200T4 PO; +HYDR200T75 PO; +LIDOCAINE HCL 1% 20 ML VIAL ONE
[2022-09-29 16:36] LABS: APPEARANCE BODY FLUID CLOUDY (CLEAR); BODY FLUID RBC 203 /cu. mm.; BODY FLUID WBC 182 /cu. mm.; COLOR,BODY FLUID YELLOW (LT YELLOW); SPECIMENTYPE,BODY FLUID ASCITES
[2022-09-29 16:37] LABS: TOTAL VOLUME,BODY FLUID 5100 mL
[2022-09-29 17:15] LABS: BF LYMPHOCYTE 16 %; BF OTHER CELLS 3
== END | disposition home or self-care (01) ==
LOC: RAH 10:00
PROVIDERS: ATTEND Internal Medicine Gastroenterology
DX: R18.8 Other ascites (principal); K74.69 Other cirrhosis of liver; D64.9 Anemia, unspecified; K74.3 Primary biliary cirrhosis; R13.10 Dysphagia, unspecified; K72.90 Hepatic failure, unspecified without coma; E78.5 Hyperlipidemia, unspecified; I25.2 Old myocardial infarction; E03.9 Hypothyroidism, unspecified; I50.20 Unspecified systolic (congestive) heart failure; M34.9 Systemic sclerosis, unspecified; I25.10 Atherosclerotic heart disease of native coronary artery without angina pectoris; Z86.010 Personal history of colon polyps; Z90.49 Acquired absence of other specified parts of digestive tract; Z98.891 History of uterine scar from previous surgery; Z98.890 Other specified postprocedural states; Z95.5 Presence of coronary angioplasty implant and graft; Z79.01 Long term (current) use of anticoagulants; Z79.899 Other long term (current) drug therapy
CPT/HCPCS: 49083; 84157; 89051; 87071; 87205; 82042; 88108; 88305; P9046; C1729; 96365

== ENCOUNTER 2022-10-28 08:03 | Emergency (ER) | payer MEDICARE ==
[~2022-10-28] VITALS: Ht 154.9 cm; Wt 48.5 kg
[~2022-10-28 08:03] MED LIST changes: -ALBUMIN (HUMAN) 25% 200 ML IV SCH; -LIDOCAINE HCL 1% 20 ML VIAL ONE
[2022-10-28 09:25] LABS: BASOPHILS % (AUTO) 0.5 % (0.0-5.0); EOSINOPHILS % (AUTO) 0.1 % (0.0-8.0); HEMATOCRIT 32.8 % (36-48); LYMPHOCYTES % (AUTO) 3.8 % (21.0-51.0); MEAN CORPUSCULAR HEMOGLOBIN 25.6 pg (27.0-33.0); MEAN CORPUSCULAR HGB CONC 31.7 g/dL (32.0-36.0); MEAN CORPUSCULAR VOLUME 80.6 fL (79-99); MONOCYTES % (AUTO) 11.4 % (3.0-13.0); NEUTROPHILS % (AUTO) 83.7 % (40.0-77.0); PLATELET COUNT (AUTO) 174 K/uL (130-400); RED BLOOD CELL COUNT(AUTO) 4.07 MIL/uL (4.00-5.50); RED CELL DISTRIBUTION WIDTH 17.4 % (11.0-15.5); WHITE BLOOD COUNT (AUTO) 7.7 K/uL (4.8-10.8)
[2022-10-28 09:35] LABS: CREATININE 1.1 mg/dL (0.5-1.5); POTASSIUM 3.4 mmol/L (3.5-5.1)
[2022-10-28 09:39] LABS: ALBUMIN 2.7 g/dL (3.5-5.0); TOTAL PROTEIN, SERUM 6.7 g/dL (6.0-8.3)
[2022-10-28 10:00] VITALS: BP 128/72
[2022-10-28 10:19] LABS: INR 1.03 (0.85-1.15); PROTHROMBIN TIME 11.9 SEC (9.6-11.6)
[2022-10-28 10:20] LABS: PARTIAL THROMBOPLASTIN TIME 27.8 SEC (26.3-35.5)
[2022-10-28] MEDS ORDERED: ALBUMIN (HUMAN) 25% 200 ML IV ONE (11:45)
[2022-10-28] MEDS ORDERED: SODIUM BICARB 50MEQ 50ML VIAL 50 ML ONE (11:45)
== END 2022-10-28 14:07 | disposition home or self-care (01) ==
LOC: EDH 08:03
DX: R18.8 Other ascites (principal); R06.00 Dyspnea, unspecified; K74.60 Unspecified cirrhosis of liver; E78.00 Pure hypercholesterolemia, unspecified; I10 Essential (primary) hypertension; Z79.02 Long term (current) use of antithrombotics/antiplatelets; Z79.82 Long term (current) use of aspirin; Z90.49 Acquired absence of other specified parts of digestive tract; Z95.5 Presence of coronary angioplasty implant and graft
CPT/HCPCS: 49083; 99285; 96365; 80053; 85025; 85610; 85730; 36415; P9046; J3490; C1729

== ENCOUNTER → 2022-11-23 | Outpatient (CLI) | payer MEDICARE ==
[~2022-11-23] MED LIST changes: +ALBUMIN (HUMAN) 25% 200 ML IV SCH
== END | disposition home or self-care (01) ==
LOC: RAH 09:00
PROVIDERS: ATTEND Internal Medicine Gastroenterology
DX: R18.8 Other ascites (principal)
CPT/HCPCS: 76705; P9046

== ENCOUNTER → 2022-12-19 | Outpatient (CLI) | payer MEDICARE | END | disposition home or self-care (01) | LOC: RAH 08:09 | PROVIDERS: ATTEND Internal Medicine Gastroenterology | DX: R18.8 Other ascites (principal) | CPT/HCPCS: 76705 ==

== ENCOUNTER → 2023-02-06 | Outpatient (CLI) | payer MEDICARE ==
[~2023-02-06] MED LIST changes: -ALBUMIN (HUMAN) 25% 200 ML IV SCH; -AMLO-258 PO; +AMLO5TAB4 PO; -ASCO500T20 PO; -ATOR40TA71 PO; -CETI1SOL17 PO; -CLIN-141 PO; -FAMO-136 PO; +FOLI0.8C PO; +FURO40TA5 PO; -HYDR200T75 PO; +LACT10SO9 PO; +MILK175C5 PO; +ROSU20TA73 PO; -SPIR100T5 PO; +SPIR50TA5 PO
[2023-02-06 12:43] LABS: BASOPHILS # (AUTO) 0.07 K/uL (0.00-0.20); BASOPHILS % (AUTO) 1.1 % (0.0-5.0); EOSINOPHILS # (AUTO) 1.11 K/uL (0.00-0.70); EOSINOPHILS % (AUTO) 17.3 % (0.0-8.0); HEMATOCRIT 32.2 % (36-48); IMMATURE GRANULOCYTE ABSOLUTE 0.04 K/uL (0-1); LYMPHOCYTES # (AUTO) 0.6 K/uL (1.0-4.8); LYMPHOCYTES % (AUTO) 9.2 % (21.0-51.0); MEAN CORPUSCULAR HEMOGLOBIN 27.2 pg (27.0-33.0); MEAN CORPUSCULAR HGB CONC 31.1 g/dL (32.0-36.0); MEAN CORPUSCULAR VOLUME 87.7 fL (79-99); MONOCYTES # (AUTO) 0.7 K/uL (0.1-1.0); MONOCYTES % (AUTO) 10.8 % (3.0-13.0); NEUTROPHILS # (AUTO) 3.9 K/uL (1.8-7.7); PLATELET COUNT (AUTO) 206 K/uL (130-400); RED BLOOD CELL COUNT(AUTO) 3.67 MIL/uL (4.00-5.50); RED CELL DISTRIBUTION WIDTH 17.9 % (11.0-15.5); WHITE BLOOD COUNT (AUTO) 6.4 K/uL (4.8-10.8)
== END | disposition home or self-care (01) ==
LOC: LAB 11:37
PROVIDERS: ATTEND Internal Medicine Cardiovascular Disease
DX: I10 Essential (primary) hypertension (principal); I25.10 Atherosclerotic heart disease of native coronary artery without angina pectoris
CPT/HCPCS: 36415; 85025

== ENCOUNTER → 2023-02-08 | Outpatient (CLI) | payer MEDICARE ==
[~2023-02-08] MED LIST changes: +AEC81 PO; +ALBUMIN (HUMAN) 25% 200 ML IV SCH; +AMLO-257 PO; +FERR-72 PO; +FOLI0.8T3 PO; +POTA20PA32 PO; +SPIRONOLACTONE
[2023-02-08 14:16] LABS: BODY FLUID RBC 9960 /cu. mm.; BODY FLUID WBC 372 /cu. mm.
[2023-02-08 14:36] LABS: APPEARANCE BODY FLUID SLIGHTLY CLOUDY (CLEAR); COLOR,BODY FLUID PINK (LT YELLOW); SPECIMENTYPE,BODY FLUID ASCITES; TOTAL VOLUME,BODY FLUID 3000 mL
[2023-02-08 15:00] LABS: BF EOSINOPHIL 2 %; BF LYMPHOCYTE 29 %; BF MACROPHAGE 58; BF OTHER CELLS 1; BF TOTAL CELLS COUNTED 100
== END | disposition home or self-care (01) ==
LOC: RAH 09:00
PROVIDERS: ATTEND Internal Medicine Gastroenterology
DX: R18.8 Other ascites (principal); I10 Essential (primary) hypertension; I25.10 Atherosclerotic heart disease of native coronary artery without angina pectoris; Z79.899 Other long term (current) drug therapy; Z79.01 Long term (current) use of anticoagulants; Z98.890 Other specified postprocedural states
CPT/HCPCS: 49083; 89051; 87071; 87205; P9046; C1729

== ENCOUNTER 2023-02-13 15:38 | Inpatient (IN) | payer MEDICARE ==
[~2023-02-13] VITALS: Ht 152.4 cm; Wt 45.3 kg
[~2023-02-13 15:38] MED LIST changes: -AEC81 PO; -AMLO-257 PO; -FERR-72 PO; -FOLI0.8T3 PO; -POTA20PA32 PO; -SPIRONOLACTONE
[2023-02-13 17:49] LABS: BASOPHILS # (AUTO) 0.09 K/uL (0.00-0.20); BASOPHILS % (AUTO) 1.2 % (0.0-5.0); EOSINOPHILS % (AUTO) 13.4 % (0.0-8.0); HEMATOCRIT 29.2 % (36-48); IMMATURE GRANULOCYTE ABSOLUTE 0.04 K/uL (0-1); LYMPHOCYTES # (AUTO) 0.5 K/uL (1.0-4.8); LYMPHOCYTES % (AUTO) 7.2 % (21.0-51.0); MEAN CORPUSCULAR HEMOGLOBIN 27.3 pg (27.0-33.0); MEAN CORPUSCULAR HGB CONC 32.5 g/dL (32.0-36.0); MEAN CORPUSCULAR VOLUME 83.9 fL (79-99); MONOCYTES # (AUTO) 0.8 K/uL (0.1-1.0); MONOCYTES % (AUTO) 10.9 % (3.0-13.0); NEUTROPHILS % (AUTO) 66.8 % (40.0-77.0); PLATELET COUNT (AUTO) 240 K/uL (130-400); RED BLOOD CELL COUNT(AUTO) 3.48 MIL/uL (4.00-5.50); RED CELL DISTRIBUTION WIDTH 16.8 % (11.0-15.5); WHITE BLOOD COUNT (AUTO) 7.5 K/uL (4.8-10.8)
[2023-02-13 18:22] LABS: ALBUMIN 2.8 g/dL (3.5-5.0); BILIRUBIN,TOTAL 1.1 mg/dL (0.2-1.0); CREATININE 1.2 mg/dL (0.5-1.5); TOTAL PROTEIN, SERUM 7.6 g/dL (6.0-8.3)
[2023-02-13] MEDS ORDERED: MAGNESIUM 2GM PREMIX 50ML 50 ML IV PRN (19:00)
[2023-02-13] MEDS ORDERED: ONDANSETRON 4MG INJ IV PRN (19:00)
[2023-02-13] MEDS ORDERED: KCL 20 MEQ ERTAB PO PRN (19:00)
[2023-02-13] MEDS ORDERED: LACTULOSE 20 GM/30 ML UDCUP PO PRN (19:00)
[2023-02-13] MEDS ORDERED: POTASSIUM CHLORIDE 10MEQ/100ML 100 ML IV PRN (19:00)
[2023-02-13 19:17] LABS: MAGNESIUM 2.2 mg/dL (1.80-2.40); THYROID STIMULATING HORMONE 5.39 uIU/mL (0.36-3.74)
[2023-02-13] MEDS ORDERED: KCL 20 MEQ ERTAB PO ONE (19:25)
[2023-02-13] MEDS: FAMOTIDINE 20MG TAB PO SCH (21:06)
[2023-02-13] MEDS ORDERED: AMLO-257 PO (21:37)
[2023-02-13 21:42] VITALS: BP 122/52; PULSE 85; RESP 18
[2023-02-13] MEDS ORDERED: URSO300C4 PO (22:11)
[2023-02-13] MEDS ORDERED: LEVO112C4 PO (22:11)
[2023-02-13] MEDS ORDERED: AEC81 PO (22:11)
[2023-02-13] MEDS ORDERED: FOLI0.8T3 PO (22:11)
[2023-02-13] MEDS ORDERED: FURO40TA5 PO (22:11)
[2023-02-13] MEDS ORDERED: OMEP40CA21 PO (22:11)
[2023-02-13] MEDS ORDERED: ERGO50CA PO (22:11)
[2023-02-13] MEDS ORDERED: SPIRONOLACTONE (22:11)
[2023-02-13] MEDS ORDERED: LACT10SO9 PO (22:11)
[2023-02-13] MEDS ORDERED: FERR-72 PO (22:11)
[2023-02-13] MEDS ORDERED: METO25TA6 PO (22:11)
[2023-02-13] MEDS ORDERED: ROSU20TA73 PO (22:11)
[2023-02-13] MEDS ORDERED: MILK175C5 PO (22:11)
[2023-02-13 22:30] VITALS: O2SAT 97
[2023-02-13] MEDS: POTASSIUM CHLORIDE 10% ELIXIR 20 MEQ/15 ML UDCUP PO PRN (23:21)
[2023-02-14] VITALS (9 sets, daily range): BP systolic 108–129; BP diastolic 40–59; PULSE 77–86; RESP 16–18; O2SAT 96–99
[2023-02-14 03:45] LABS: CREATININE 1.2 mg/dL (0.5-1.5); POTASSIUM 3.4 mmol/L (3.5-5.1)
[2023-02-14 03:54] LABS: BASOPHILS # (AUTO) 0.06 K/uL (0.00-0.20); BASOPHILS % (AUTO) 1.2 % (0.0-5.0); EOSINOPHILS # (AUTO) 0.91 K/uL (0.00-0.70); HEMATOCRIT 28.4 % (36-48); IMMATURE GRANULOCYTE ABSOLUTE 0.01 K/uL (0-1); LYMPHOCYTES # (AUTO) 0.5 K/uL (1.0-4.8); LYMPHOCYTES % (AUTO) 10.3 % (21.0-51.0); MEAN CORPUSCULAR HEMOGLOBIN 27.2 pg (27.0-33.0); MEAN CORPUSCULAR HGB CONC 32.4 g/dL (32.0-36.0); NEUTROPHILS # (AUTO) 2.6 K/uL (1.8-7.7); NEUTROPHILS % (AUTO) 51.3 % (40.0-77.0); PLATELET COUNT (AUTO) 167 K/uL (130-400); RED BLOOD CELL COUNT(AUTO) 3.38 MIL/uL (4.00-5.50); RED CELL DISTRIBUTION WIDTH 16.6 % (11.0-15.5); WHITE BLOOD COUNT (AUTO) 5.1 K/uL (4.8-10.8)
[2023-02-14] MEDS: POTASSIUM CHLORIDE 10% ELIXIR 20 MEQ/15 ML UDCUP PO PRN ×2 (05:23→07:39)
[2023-02-14] MEDS: LEVOTHYROXINE 112 MCG TABLET PO SCH (07:30)
[2023-02-14] MEDS ORDERED: NON-FORMULARY MEDICATION 1 EACH (Levothyroxine Sodium (Levothyroxine) 112 MCG) PO SCH (07:30)
[2023-02-14] MEDS ORDERED: NON-FORMULARY MEDICATION 1 EACH (Ferrous Sulfate 325 MG) PO SCH (09:00)
[2023-02-14] MEDS: FOLIC ACID 0.8 MG PO SCH (09:00)
[2023-02-14] MEDS ORDERED: FUROSEMIDE 40 MG TABLET PO SCH (09:00)
[2023-02-14] MEDS: LACTULOSE 20 GM/30 ML UDCUP PO SCH ×2 (09:00→22:20)
[2023-02-14] MEDS ORDERED: NON-FORMULARY MEDICATION 1 EACH (Rosuvastatin Calcium 20 MG) PO SCH (09:00)
[2023-02-14] MEDS: FERROUS SULFATE 325 MG TABLET.DR PO SCH (10:44)
[2023-02-14] MEDS: URSODIOL 300 MG CAPSULE PO SCH ×2 (10:44→22:19)
[2023-02-14] MEDS: ASPIRIN 81 MG EC TAB PO SCH (10:44)
[2023-02-14] MEDS: METOPROLOL TARTRATE 25 MG TAB PO SCH ×2 (10:54→22:18)
[2023-02-14] MEDS: AMLODIPINE 5 MG TAB PO SCH (11:06)
[2023-02-14] MEDS: KCL 20 MEQ ERTAB PO ONE ×2 (12:28→18:40)
[2023-02-14] MEDS ORDERED: KCL 20 MEQ ERTAB PO ONE (18:30)
[2023-02-14] MEDS ORDERED: ATORVASTATIN 40 MG TABLET PO SCH (21:00)
[2023-02-14] MEDS: FAMOTIDINE 20MG TAB PO SCH (22:18)
[2023-02-15 04:05] VITALS: BP 101/43; PULSE 70; RESP 18
[2023-02-15 04:36] LABS: HEMATOCRIT 27.1 % (36-48); MEAN CORPUSCULAR HEMOGLOBIN 27.4 pg (27.0-33.0); MEAN CORPUSCULAR HGB CONC 32.8 g/dL (32.0-36.0); MEAN CORPUSCULAR VOLUME 83.4 fL (79-99); RED BLOOD CELL COUNT(AUTO) 3.25 MIL/uL (4.00-5.50); RED CELL DISTRIBUTION WIDTH 16.9 % (11.0-15.5); WHITE BLOOD COUNT (AUTO) 4.7 K/uL (4.8-10.8)
[2023-02-15 05:14] LABS: BILIRUBIN,TOTAL 0.7 mg/dL (0.2-1.0); CREATININE 1.2 mg/dL (0.5-1.5); MAGNESIUM 2.2 mg/dL (1.80-2.40); POTASSIUM 3.9 mmol/L (3.5-5.1); TOTAL PROTEIN, SERUM 5.7 g/dL (6.0-8.3)
[2023-02-15 07:15] VITALS: BP 110/50; PULSE 72; RESP 18
[2023-02-15] MEDS: LEVOTHYROXINE 112 MCG TABLET PO SCH (07:27)
[2023-02-15] MEDS ORDERED: KCL 20 MEQ ERTAB PO ONE (07:30)
[2023-02-15 08:00] VITALS: O2SAT 96
[2023-02-15] MEDS ORDERED: POTASSIUM CHLORIDE 10% ELIXIR 20 MEQ/15 ML UDCUP PO ONE (08:00)
[2023-02-15] MEDS: FOLIC ACID 0.8 MG PO SCH (09:00)
[2023-02-15] MEDS: LACTULOSE 20 GM/30 ML UDCUP PO SCH (09:27)
[2023-02-15] MEDS: METOPROLOL TARTRATE 25 MG TAB PO SCH (09:28)
[2023-02-15] MEDS: FERROUS SULFATE 325 MG TABLET.DR PO SCH (09:28)
[2023-02-15] MEDS: ASPIRIN 81 MG EC TAB PO SCH (09:29)
[2023-02-15] MEDS: AMLODIPINE 5 MG TAB PO SCH (09:29)
[2023-02-15] MEDS: URSODIOL 300 MG CAPSULE PO SCH (09:29)
[2023-02-15] MEDS ORDERED: POTA20PA32 PO (09:33)
[2023-02-15 11:00] VITALS: BP 122/59; PULSE 71; RESP 18
[2023-02-15 14:16] VITALS: BP 112/49; PULSE 71; RESP 16
== END 2023-02-15 14:42 | disposition home or self-care (01) | DRG 641 ==
LOC: EDH 15:38 → EDHIP 19:00 → 2DH 21:03
PROVIDERS: ADMIT Hospitalist; ATTEND Hospitalist
DX: E87.6 Hypokalemia (principal); E87.1 Hypo-osmolality and hyponatremia; I10 Essential (primary) hypertension; K74.60 Unspecified cirrhosis of liver; E03.9 Hypothyroidism, unspecified; E78.5 Hyperlipidemia, unspecified; K21.9 Gastro-esophageal reflux disease without esophagitis; I25.10 Atherosclerotic heart disease of native coronary artery without angina pectoris; I25.2 Old myocardial infarction; Z76.82 Awaiting organ transplant status; Z79.82 Long term (current) use of aspirin; Z86.73 Personal history of transient ischemic attack (TIA), and cerebral infarction without residual deficits; Z95.5 Presence of coronary angioplasty implant and graft; Z90.49 Acquired absence of other specified parts of digestive tract
CPT/HCPCS: 36415; 80048; 80053; 82140; 83690; 83735; 84132; 84443; 84484; 85025; 85027; 93005; G0378

== ENCOUNTER → 2023-02-13 | Outpatient (CLI) | payer MEDICARE ==
[~2023-02-13] MED LIST changes: -ALBUMIN (HUMAN) 25% 200 ML IV SCH
[2023-02-13 12:15] LABS: BASOPHILS # (AUTO) 0.08 K/uL (0.00-0.20); BASOPHILS % (AUTO) 1.5 % (0.0-5.0); EOSINOPHILS # (AUTO) 0.57 K/uL (0.00-0.70); EOSINOPHILS % (AUTO) 10.5 % (0.0-8.0); HEMATOCRIT 32.6 % (36-48); IMMATURE GRANULOCYTE ABSOLUTE 0.02 K/uL (0-1); LYMPHOCYTES # (AUTO) 0.5 K/uL (1.0-4.8); LYMPHOCYTES % (AUTO) 9.8 % (21.0-51.0); MEAN CORPUSCULAR HEMOGLOBIN 27.6 pg (27.0-33.0); MEAN CORPUSCULAR HGB CONC 32.2 g/dL (32.0-36.0); MEAN CORPUSCULAR VOLUME 85.8 fL (79-99); MONOCYTES # (AUTO) 0.6 K/uL (0.1-1.0); MONOCYTES % (AUTO) 11.1 % (3.0-13.0); NEUTROPHILS # (AUTO) 3.6 K/uL (1.8-7.7); NEUTROPHILS % (AUTO) 66.7 % (40.0-77.0); PLATELET COUNT (AUTO) 193 K/uL (130-400); RED CELL DISTRIBUTION WIDTH 17.1 % (11.0-15.5); WHITE BLOOD COUNT (AUTO) 5.4 K/uL (4.8-10.8)
[2023-02-13 12:40] LABS: CREATININE 1.4 mg/dL (0.5-1.5)
[2023-02-13 13:03] LABS: POTASSIUM 2.4 mmol/L (3.5-5.1)
== END | disposition home or self-care (01) ==
LOC: LAB 10:18
PROVIDERS: ATTEND Physician Assistant
DX: I10 Essential (primary) hypertension (principal); R07.9 Chest pain, unspecified
CPT/HCPCS: 36415; 80048; 85025

== ENCOUNTER → 2023-02-20 | Outpatient (CLI) | payer MEDICARE ==
[~2023-02-20] MED LIST changes: +AEC81 PO; +AMLO-257 PO; +FERR-72 PO; +FOLI0.8T3 PO; +POTA20PA32 PO; +SPIRONOLACTONE
[2023-02-20 12:52] LABS: CREATININE 1.3 mg/dL (0.5-1.5); MAGNESIUM 2.2 mg/dL (1.80-2.40); POTASSIUM 3.4 mmol/L (3.5-5.1)
== END | disposition home or self-care (01) ==
LOC: LAB 11:25
PROVIDERS: ATTEND Internal Medicine Cardiovascular Disease
DX: I10 Essential (primary) hypertension (principal); I25.10 Atherosclerotic heart disease of native coronary artery without angina pectoris
CPT/HCPCS: 36415; 80048; 83735

== ENCOUNTER → 2023-02-21 | Outpatient (CLI) | payer MEDICARE ==
[~2023-02-21] MED LIST changes: +ALBUMIN (HUMAN) 25% 200 ML IV ONE
[2023-02-21 12:24] LABS: BODY FLUID RBC 6395 /cu. mm.; BODY FLUID WBC 161 /cu. mm.
[2023-02-21 12:34] LABS: APPEARANCE BODY FLUID SLIGHTLY CLOUDY (CLEAR); COLOR,BODY FLUID YELLOW (LT YELLOW); SPECIMENTYPE,BODY FLUID ASCITES; TOTAL VOLUME,BODY FLUID 3000 mL
[2023-02-21 12:55] LABS: BF EOSINOPHIL 6 %; BF LYMPHOCYTE 21 %; BF MESOTHELIAL 48 %; BF MONOCYTE 13 %; BF TOTAL CELLS COUNTED 100
== END | disposition home or self-care (01) ==
LOC: RAH 09:01
PROVIDERS: ATTEND Internal Medicine Gastroenterology
DX: R18.8 Other ascites (principal); K74.60 Unspecified cirrhosis of liver; E78.5 Hyperlipidemia, unspecified; I10 Essential (primary) hypertension; E03.9 Hypothyroidism, unspecified; K21.9 Gastro-esophageal reflux disease without esophagitis; I21.4 Non-ST elevation (NSTEMI) myocardial infarction; I25.10 Atherosclerotic heart disease of native coronary artery without angina pectoris; Z80.9 Family history of malignant neoplasm, unspecified; Z83.3 Family history of diabetes mellitus; Z82.3 Family history of stroke; Z88.8 Allergy status to other drugs, medicaments and biological substances; Z82.49 Family history of ischemic heart disease and other diseases of the circulatory system; Z79.82 Long term (current) use of aspirin; Z79.899 Other long term (current) drug therapy; Z79.890 Hormone replacement therapy; Z98.890 Other specified postprocedural states
CPT/HCPCS: 49083; 89051; 87071; 87205; P9046; C1729

== ENCOUNTER → 2023-03-08 | Outpatient (CLI) | payer MEDICARE ==
[~2023-03-08] MED LIST changes: +SPIR100T5 PO; +TICA90TA PO
[2023-03-08 08:53] LABS: BASOPHILS # (AUTO) 0.05 K/uL (0.00-0.20); BASOPHILS % (AUTO) 1.3 % (0.0-5.0); EOSINOPHILS # (AUTO) 0.11 K/uL (0.00-0.70); EOSINOPHILS % (AUTO) 2.8 % (0.0-8.0); HEMATOCRIT 33.5 % (36-48); IMMATURE GRANULOCYTE ABSOLUTE 0.01 K/uL (0-1); LYMPHOCYTES # (AUTO) 0.4 K/uL (1.0-4.8); LYMPHOCYTES % (AUTO) 10.8 % (21.0-51.0); MEAN CORPUSCULAR HEMOGLOBIN 27.3 pg (27.0-33.0); MEAN CORPUSCULAR HGB CONC 32.2 g/dL (32.0-36.0); MEAN CORPUSCULAR VOLUME 84.6 fL (79-99); MONOCYTES # (AUTO) 0.7 K/uL (0.1-1.0); MONOCYTES % (AUTO) 16.6 % (3.0-13.0); NEUTROPHILS # (AUTO) 2.7 K/uL (1.8-7.7); NEUTROPHILS % (AUTO) 68.2 % (40.0-77.0); PLATELET COUNT (AUTO) 188 K/uL (130-400); RED BLOOD CELL COUNT(AUTO) 3.96 MIL/uL (4.00-5.50); RED CELL DISTRIBUTION WIDTH 15.9 % (11.0-15.5)
[2023-03-08 09:05] LABS: INR 0.98 (0.85-1.15); PROTHROMBIN TIME 11.4 SEC (9.6-11.6)
[2023-03-08 09:06] LABS: PARTIAL THROMBOPLASTIN TIME 28.5 SEC (26.3-35.5)
[2023-03-08 09:07] LABS: ALBUMIN 2.7 g/dL (3.5-5.0); BILIRUBIN,TOTAL 0.9 mg/dL (0.2-1.0); CREATININE 1.4 mg/dL (0.5-1.5); POTASSIUM 3.8 mmol/L (3.5-5.1); TOTAL PROTEIN, SERUM 7.1 g/dL (6.0-8.3)
[2023-03-08 14:54] LABS: APPEARANCE BODY FLUID CLOUDY (CLEAR); COLOR,BODY FLUID LT YELLOW (LT YELLOW); SPECIMENTYPE,BODY FLUID ASCITES; TOTAL VOLUME,BODY FLUID 3500 mL
[2023-03-08 15:07] LABS: BODY FLUID RBC 3746 /cu. mm.; BODY FLUID WBC 1167 /cu. mm.
[2023-03-08 15:40] LABS: BF LYMPHOCYTE 23 %; BF MACROPHAGE 36; BF MESOTHELIAL 30 %; BF MONOCYTE 2 %; BF OTHER CELLS 1; BF TOTAL CELLS COUNTED 100
== END | disposition home or self-care (01) ==
LOC: RAH 07:51
PROVIDERS: ATTEND Internal Medicine Gastroenterology
DX: R18.8 Other ascites (principal); K74.69 Other cirrhosis of liver; I10 Essential (primary) hypertension; E78.5 Hyperlipidemia, unspecified; E03.9 Hypothyroidism, unspecified; K21.9 Gastro-esophageal reflux disease without esophagitis; I21.4 Non-ST elevation (NSTEMI) myocardial infarction; I25.10 Atherosclerotic heart disease of native coronary artery without angina pectoris; Z80.3 Family history of malignant neoplasm of breast; Z80.9 Family history of malignant neoplasm, unspecified; Z83.3 Family history of diabetes mellitus; Z82.3 Family history of stroke; Z88.8 Allergy status to other drugs, medicaments and biological substances; Z82.49 Family history of ischemic heart disease and other diseases of the circulatory system; Z79.82 Long term (current) use of aspirin; Z98.890 Other specified postprocedural states; Z79.01 Long term (current) use of anticoagulants; Z79.899 Other long term (current) drug therapy
CPT/HCPCS: 49083; 80053; 85025; 89051; 85610; 85730; 87071; 87205; 36415; P9046; C1729